=== PATIENT | female | born 1985 | race American Indian/Alaskan Native ===

== ENCOUNTER 2016-07-07 18:04 | Emergency (ER) | payer MEDICAID ==
[2016-07-07 19:14] LABS: Basophils % (Auto) 0.8 % (0.0-1.8); Eosinophils % (Auto) 0.8 % (0.0-4.3); Hematocrit 38.4 % (30.3-42.9); Hemoglobin 13.3 gm/dl (10.1-14.3); Mean Corpuscular HGB Conc 35 % (30-34); Mean Corpuscular Hemoglobin 32 pg (28-32); Mean Corpuscular Volume 94 fl (79-97); Platelet Count 423 K/mm3 (140-440); Red Cell Distribution Width 13.2 % (13.2-15.2); White Blood Count 9.1 K/mm3 (4.5-11.0)
[2016-07-07 19:19] LABS: Anion Gap 16 mmol/L; BUN/Creatinine Ratio 21.42; Blood Urea Nitrogen 15 mg/dL (7-17); Calcium 9.4 mg/dL (8.4-10.2); Carbon Dioxide 27 mmol/L (22-30); Chloride 94.7 mmol/L (98-107); Glucose 98 mg/dL (65-100); Potassium 3.6 mmol/L (3.6-5.0); Sodium 134 mmol/L (137-145)
[2016-07-07 19:43] LABS: Bilirubin,Urine NEG (Negative); Blood,Urine NEG (Negative); Ketones,Urine 20 mg/dL (Negative); Leukocyte Esterase,Urine SM (Negative); Mucus,Urine 3+ /HPF; Nitrite,Urine NEG (Negative)
[2016-07-07] MEDS ORDERED: ZOFRAN ODT PO ONE (23:53)
--- NOTE | 2016-07-08 01:10 | Emergency Department Report ---
HPI - General Chief Complaint: Nausea/Vomiting/Diarrhea Time Seen by Provider: 07/07/16 23:46 - HPI HPI: The patient is a 31-year-old , EGA 9 weeks, female who presents for evaluation of nausea and vomiting. The patient reports persistent and constant nausea and episodes of severe vomiting for the past one week, exacerbated with eating and in the morning, improved at nighttime. She shares that she tested positive for on home test. The patient denies fever, trauma to the abdomen, abdominal pain, diarrhea, blood in the stool, dark tarry stool, dysuria , hematuria, flank pain, vaginal bleeding, genital discharge, inability to pass flatus. ED Past Medical Hx - Past Medical History Previous Medical History?: No - Surgical History Past Surgical History?: No - Social History Smoking Status: Former Smoker Substance Use Type: None - Medications Home Medications: Home Medications Medication Instructions Recorded Confirmed Last Taken Type Ondansetron [Zofran TAB] 4 mg PO Q8HR PRN #14 tablet 07/08/16 Unknown Rx Vit-Fe Fumar-FA [ 1 tab PO QDAY #30 tablet 07/08/16 Unknown Rx Vitamin] ED Review of Systems ROS: Stated complaint: 7 WKS PREG / N/V Other details as noted in HPI Constitutional: denies: fever ENT: denies: throat or neck pain Respiratory: denies: cough, shortness of breath Cardiovascular: denies: chest pain Endocrine: denies unexplained weight loss or gain Gastrointestinal: denies: abdominal pain, reports nausea Genitourinary: denies: dysuria Musculoskeletal: denies: leg swelling Skin: denies: rash Neurological: denies: headache Hematological/Lymphatic: denies: easy bleeding or easy bruising Psych: denies sadness or hopelessness Physical Exam - Physical Exam Vital Signs: Vital Signs 07/07/16 07/07/16 07/08/16 18:11 23:23 00:16 Temperature 98.3 F 98.4 F Pulse Rate 88 73 Respiratory 20 18 20 Rate Blood Pressure 144/102 Blood Pressure 155/86 [Left] O2 Sat by Pulse 98 100 99 Oximetry Physical Exam: General: well-nourished, well-developed, no acute distress Head: Normocephalic, atraumatic Eyes: normal sclera ENT: Mucous membranes are pale and dry Neck: No neck stiffness, no cervical adenopathy Respiratory: Breath sounds equal bilaterally, no wheezing, rales, or rhonchi Cardio: S1 and S2 present, no murmurs, rubs, gallops, capillary refill is delayed Abdomen: Normoactive bowel sounds, soft abdomen, no tenderness Chest WALL/Back: No tenderness to palpation of the chest wall, no CVA tenderness with percussion Musc: No pitting edema Skin: No rash Neuro: no facial drooping, normal speech Psych: Normal affect ED Course Vital Signs 07/07/16 07/07/16 07/08/16 18:11 23:23 00:16 Temperature 98.3 F 98.4 F Pulse Rate 88 73 Respiratory 20 18 20 Rate Blood Pressure 144/102 Blood Pressure 155/86 [Left] O2 Sat by Pulse 98 100 99 Oximetry ED Medical Decision Making - Lab Data Result diagrams: 07/07/16 18:53 07/07/16 18:53 - Medical Decision Making The patient was seen and examined by myself. The patient is placed on a teletypesetter monitor and continuous pulse ox. On initial evaluation, the patient was found to be in no distress. Evaluation orders are placed. IV access is established and the patient is given 1 L normal saline fluid bolus and Zofran for nausea. Lab results were non-concerning including WBC, hemoglobin, hematocrit, electrolytes, renal function, LFTs, lipase, negative urine test, and urinalysis. A serum beta-HCG test was performed and found to be 130,000, despite negative urine preg test. An ultrasound was performed and found to exhibit live intrauterine at 9 weeks EGA with heart rate within normal limits. The patient was reevaluated and reported that their symptoms were markedly improved. The patient is stable for discharge with outpatient follow- up. The patient is given follow-up and return instructions. The patient expressed understanding and agreed with the plan. The patient is discharged in stable condition. Critical care attestation.: If time is entered above; I have spent that time in minutes in the direct care of this critically ill patient, excluding procedure time. ED Disposition Clinical Impression: Nausea and vomiting in adult patient, Nausea and vomiting during prior to 22 weeks gestation, Dehydration Disposition: DISCHARGED TO HOME OR SELFCARE Is pt being admited?: No Does the pt Need Aspirin: No Condition: Stable Instructions: Acute Nausea and Vomiting (ED) Prescriptions: Ondansetron [Zofran TAB] 4 mg PO Q8HR PRN #14 tablet PRN Reason: Nausea Vit-Fe Fumar-FA [ Vitamin] 1 tab PO QDAY #30 tablet Referrals: TOMER MENDOZA MD [Primary Care Provider] - 3-5 Days [facility] [Provider Group] - 3-5 Days Time of Disposition: 01:04
[2016-07-08] MEDS ORDERED: ZOFRAN IV ONE (01:37)
[2016-07-08] MEDS ORDERED: NACL 0.9% 1000 ML 1,000 ML IV ONE (01:37)
--- NOTE | 2016-07-08 02:46 | Ultrasound Report ---
FINAL REPORT PROCEDURE: US OB \T\lt; = 14 WEEKS FETUS TECHNIQUE: Real-time transabdominal and transvaginal sonography of the uterus, placenta, amniotic fluid, adnexa, and fetus was performed with image documentation. Measurements were obtained to determine age/size. M-mode Doppler was used to document heartbeat. [place] 65585 [place] [address]17 HISTORY: , intractable vomiting COMPARISON: No prior studies are available for comparison. FINDINGS: ADDITIONAL GESTATION: None. CRL: 23 mm, which corresponds to a gestational age of: 9 weeks, 0 days. Yolk Sac: Normal. Embryonic Cardiac Activity: 178 beats per minute Gestational Sac: Normal. Amniotic fluid: Normal. Cervix: Normal. Right Ovary: Normal. Left Ovary: Normal. Estimated delivery date: 02/10/2017 Uterus and adnexa: Normal. IMPRESSION: 1. Single live intrauterine gestation at approximately 9 weeks, 0 days. 2. EDC by US 02/10/2017 3. Complete anatomic survey at 18-20 weeks suggested.
--- NOTE | 2016-07-08 02:47 | Ultrasound Report ---
FINAL REPORT PROCEDURE: US OB \T\lt; = 14 WEEKS FETUS TECHNIQUE: Real-time transabdominal and transvaginal sonography of the uterus, placenta, amniotic fluid, adnexa, and fetus was performed with image documentation. Measurements were obtained to determine age/size. M-mode Doppler was used to document heartbeat. CPT 45019 and 85102 HISTORY: , intractable vomiting COMPARISON: No prior studies are available for comparison. FINDINGS: ADDITIONAL GESTATION: None. CRL: 23 mm, which corresponds to a gestational age of: 9 weeks, 0 days. Yolk Sac: Normal. Embryonic Cardiac Activity: 178 beats per minute Gestational Sac: Normal. Amniotic fluid: Normal. Cervix: Normal. Right Ovary: Normal. Left Ovary: Normal. Estimated delivery date: 02/10/2017 Uterus and adnexa: Normal. IMPRESSION: 1. Single live intrauterine gestation at approximately 9 weeks, 0 days. 2. EDC by US 02/10/2017 3. Complete anatomic survey at 18-20 weeks suggested. PROCEDURE: TECHNIQUE: HISTORY: COMPARISON: FINDINGS: IMPRESSION:
[2016-07-08 05:02] VITALS: BP 146/80
== END 2016-07-08 05:02 | disposition home or self-care (01) ==
LOC: ED 18:04
DX: O21.9 Vomiting of pregnancy, unspecified (principal); R11.0 Nausea; E86.0 Dehydration; Z87.891 Personal history of nicotine dependence; Z3A.09 9 weeks gestation of pregnancy
CPT/HCPCS: 36415; 76801; 76817; 80048; 81001; 81025; 84702; 85025; 96361; 96374; 99284; J2405; J7030; Q0162